=== PATIENT | female | born 1975 | race Caucasian/White ===

== ENCOUNTER 2018-11-14 17:49 | Emergency (ER) | payer MEDICAID ==
[2018-11-14 17:49] VITALS: BMI 35.3
[2018-11-14 18:01] VITALS: TEMP 98
[2018-11-14 19:39] LABS: BASO # 0.1 K/uL (0.0-0.2); BASO % 0.6 % (0.0-2.0); EOS # 0.1 K/uL (0.0-0.7); HEMOGLOBIN 12.6 g/dL (12.0-16.0); LYMPH # 1.8 K/uL (1.0-4.3); LYMPH % 19.5 % (20.0-40.0); MEAN CELL VOLUME 86.3 fl (81.0-99.0); MEAN CORPUSCULAR HEMOGLOBIN 29.5 pg (27.0-31.0); MEAN CORPUSCULAR HGB CONC 34.2 g/dL (33.0-37.0); MEAN PLATELET VOLUME 7.2 fl (7.2-11.7); MONO # 0.8 K/uL (0.0-0.8); MONO % 8.4 % (0.0-10.0); NEUT # 6.7 K/uL (1.8-7.0); NEUT % 70.5 % (50.0-75.0); RBC 4.27 Mil/uL (3.80-5.20); RED CELL DISTRIBUTION WIDTH 13.7 % (11.5-14.5); WHITE BLOOD COUNT 9.4 K/uL (4.8-10.8)
[2018-11-14 19:59] LABS: ALB/GLOB RATIO 1.3 (1.0-2.1); ALBUMIN 4.1 g/dL (3.5-5.0); ALT/SGPT 28 U/L (9-52); AST/SGOT 29 U/L (14-36); BLOOD UREA NITROGEN 11 mg/dl (7-17); CALCIUM 9.2 mg/dL (8.4-10.2); GFR NON-AFRICAN AMERICAN > 60
--- NOTE | 2018-11-14 20:10 | ED PDOC ---
HPI: Chest Pain Time Seen by Provider: 11/14/18 18:33 Chief Complaint (Nursing): Chest Pain Chief Complaint (Provider): Chest Pain History Per: Patient History/Exam Limitations: no limitations Onset/Duration Of Symptoms: Days (x4) Current Symptoms Are (Timing): Still Present Additional Complaint(s): 43 y/o female with a PMHx of Migraines presents to the ED for evaluation of right sided chest pain, onset four days ago. Patient reports of experiencing right sided chest pain on evening just prior to going to bed. Patient describes the pain as pressure like and radiates to the back. Patient states pain lasted for 20 minutes and spontaneously resolved. Patient notes of having woke up the next day and feeling paresthesias to the right arm. Patient states arm felt weak. Patient reports pain has progressively worsened over the last couple of days and of feeling the chest pain again earlier today. Patient notes of having called her PMD about symptoms and was told to go to the ER for further evaluation. Otherwise, patient denies shortness of breath, leg swelling, headache, nausea and vomiting. Patient additionally reports of experiencing neck pain intermittently for a long time that is unchanged. Patient denies any neck pain at present. Patient notes of taking control medications. PMD: In [place], [place] Past Medical History Reviewed: Historical Data, Nursing Documentation, Vital Signs Vital Signs: Last Vital Signs Temp 98.0 F 11/14/18 18:00 Pulse 75 11/14/18 18:00 Resp 19 11/14/18 18:00 BP 134/72 11/14/18 18:00 Pulse Ox 100 11/14/18 18:00 - Medical History PMH: Migraine Denies: Chronic Kidney Disease - Surgical History Surgical History: Cholecystectomy Other surgeries: KNEE SURGERY AND OVARIAN CYSTS SURGERY - Family History Family History: States: Diabetes, Hypertension - Home Medications Home Medications: Ambulatory Orders Medication Instructions Recorded Norgestimate-Ethinyl Estradiol 1 tab PO DAILY 01/16/13 [Ortho Tri-Cyclen Lo 0.025 mg-0.25 mg] Cholecalciferol [Vitamin D] 2,000 iu PO DAILY 06/07/14 Cyanocobalamin [Vitamin B12] 1,000 mcg IM QWK 08/16/14 Ibuprofen [Motrin] 600 mg PO DAILY PRN 08/16/14 Ciprofloxacin HCl [Ciprofloxacin] 500 mg PO Q12 #20 tab 07/06/16 Dicyclomine [Bentyl] 20 mg PO Q6 PRN #12 tab 02/05/16 Famotidine [Pepcid] 40 mg PO DAILY #20 tab 02/05/16 Metronidazole [Flagyl] 500 mg PO TID #30 tablet 02/05/16 Ondansetron [Zofran] 4 mg PO Q8H #8 tab 02/05/16 traMADol [Ultram] 50 mg PO Q8 PRN #12 tab 02/05/16 Naproxen [Naprosyn] 1 tab PO BID PRN #30 tab 11/14/18 - Allergies Allergies/Adverse Reactions: Allergies Allergy/AdvReac Type Severity Reaction Status Date / Time No Known Allergies Allergy Verified 01/16/13 15:17 Review of Systems ROS Statement: Except As Marked, All Systems Reviewed And Found Negative (as per HPI) Cardiovascular: Positive for: Chest Pain Respiratory: Negative for: Shortness of Breath Gastrointestinal: Negative for: Nausea, Vomiting Musculoskeletal: Positive for: Neck Pain. Negative for: Leg Pain Neurological: Positive for: Weakness, Other (paresthesia to the right arm). Negative for: Headache Physical Exam - Reviewed Nursing Documentation Reviewed: Yes Vital Signs Reviewed: Yes - Physical Exam Appears: Positive for: Well, Non-toxic, No Acute Distress Head Exam: Positive for: ATRAUMATIC, NORMOCEPHALIC Skin: Positive for: Warm, Dry Eye Exam: Positive for: EOMI, PERRL ENT: Negative for: Pharyngeal Erythema, Tonsillar Exudate Neck: Positive for: Painless ROM, Supple Cardiovascular/Chest: Positive for: Regular Rate, Rhythm. Negative for: Murmur Respiratory: Positive for: Normal Breath Sounds (lungs are clear to auscultation bilaterally). Negative for: Rales, Respiratory Distress Gastrointestinal/Abdominal: Positive for: Soft. Negative for: Tenderness Back: Positive for: Normal Inspection. Negative for: Decreased ROM Extremity: Negative for: Calf Tenderness, Other (edema) Lymphatic: Negative for: Adenopathy Neurological/Psych: Positive for: Awake, Alert. Negative for: Motor/Sensory Deficits - Laboratory Results Result Diagrams: 11/14/18 19:34 11/14/18 19:34 Lab Results: Total Bilirubin 0.5 mg/dl (0.2-1.3) 11/14/18 19:34 AST 29 U/L (14-36) 11/14/18 19:34 ALT 28 U/L (9-52) 11/14/18 19:34 Alkaline Phosphatase 73 U/L (38-126) 11/14/18 19:34 Total Protein 7.4 G/DL (6.3-8.2) 11/14/18 19:34 Albumin 4.1 g/dL (3.5-5.0) 11/14/18 19:34 Globulin 3.2 gm/dL (2.2-3.9) 11/14/18 19:34 Albumin/Globulin Ratio 1.3 (1.0-2.1) 11/14/18 19:34 ELevated ddimer. No emergently significant abnormalities - ECG ECG: Positive for: Interpreted By Me ECG Rhythm: Positive for: Normal QRS, Normal ST Segment, Sinus Rhythm (With sinus arrhythmia) Rate: 68 O2 Sat by Pulse Oximetry: 100 (RA) Pulse Ox Interpretation: Normal Medical Decision Making Medical Decision Making: Time: 1900 Impression: Right sided chest pain and right upper extremity paresthesias Differentials include but not limited to pulmonary embolism, radiculopathy and intercranial mass Plan: -- CT Cervical Spine w/o Contrast -- CT Head w/o Contrast -- EKG -- CMP -- Magnesium -- Phosphorus -- Thyroid Stimulating Hormone -- Troponin I -- ED Urine -- ED Urine Dipstick -- CBC with differentials -- D Dimer -- CXR Two Views Time: 2007 -- CTA PE Protocol EXAM: CT Head Without IV contrast. CLINICAL HISTORY: Right arm weakness TECHNIQUE: Axial computed tomography images of the head/brain without intravenous contrast. COMPARISON: None provided. FINDINGS: BRAIN: No acute intraparenchymal hemorrhage. No mass lesion. No CT evidence for acute territorial infarct. No midline shift or extra-axial collections. VENTRICLES: No hydrocephalus. ORBITS: The orbits are unremarkable. SINUSES AND MASTOIDS: The paranasal sinuses and mastoid air cells are clear. BONES: No fracture. SOFT TISSUES: Unremarkable. IMPRESSION: No acute intracranial abnormality. Electronically signed on Nov 14, 2018 10:30:01 PM EDT by: Patrick Martinez M.D., HERIBERTO Certified By ABR & [employer] Fellowship Trained MRI and CT Specialist EXAM: CT Cervical Spine Without IV contrast. CLINICAL HISTORY: Right arm weakness and neck pain TECHNIQUE: Axial computed tomography images of the cervical spine without intravenous contrast. Sagittal and coronal reformatted images were generated. COMPARISON: None provided. FINDINGS: ALIGNMENT: There is straightening and slight reversal of the cervical lordosis. No evidence for acute fracture or subluxation. DEGENERATIVE CHANGES: No significant degenerative changes in the cervical spine. SOFT TISSUES: No focal prevertebral soft tissue swelling. BONES: No acute fracture or aggressive appearing osseous lesion. IMPRESSION: 1. There is straightening and slight reversal of the cervical lordosis. 2. No focal prevertebral soft tissue swelling. 3. No evidence for acute fracture or subluxation. 4. No significant degenerative changes in the cervical spine. Electronically signed on Nov 14, 2018 10:27:59 PM EDT by: Patrick Martinez M.D., MBA Certified By ABR & [employer] Fellowship Trained MRI and CT Specialist EXAM: CTA Chest with Intravenous Contrast for Pulmonary Embolism CLINICAL HISTORY: Chest pain with elevated d dimer TECHNIQUE: Axial CTA images of the chest with intravenous contrast using a pulmonary embolism protocol. Reconstructed images were created and reviewed. 286.21 mGy-cm CONTRAST: With; 75ml Visipaque 320 was administered without incident. COMPARISON: None provided. FINDINGS: BREASTS: Incidental note is made of a 1.7 x 1.9 cm partially calcified fibroadenoma in the medial left breast. PULMONARY ARTERIES No evidence of central or segmental pulmonary embolism is seen. AORTA There is no evidence for aneurysm or dissection of the thoracic aorta. LUNGS The lungs appear clear. PLEURAL SPACES No evidence of pneumothorax. No pleural effusion. HEART Normal heart size. No pericardial effusion. LYMPH NODES No lymphadenopathy is evident. BONES No focal osseous abnormality or acute fracture. UPPER ABDOMEN Images of the upper abdomen demonstrated hepatomegaly. The liver measured 17.2 cm in the midclavicular line. There has been prior cholecystectomy. IMPRESSION: 1. No identification of PE. 2. Hepatomegaly. 3. Status post cholecystectomy. Electronically signed on Nov 14, 2018 10:28:09 PM EDT by: Patrick Martinez M.D., HERIBERTO Certified By ABR & CBC[employer] Fellowship Trained MRI and CT Specialist Time: 2242 -- Discussed with patient findings. Instructions to follow up with PMD for furth er evaluation. Scribe Attestation: Documented by Florecita Joyce, acting as a scribe for Alvina Ruelas MD. Provider Scribe Attestation: All medical record entries made by the Scribe were at my direction and personally dictated by me. I have reviewed the chart and agree that the record accurately reflects my personal performance of the history, physical exam, medical decision making, and the department course for this patient. I have also personally directed, reviewed, and agree with the discharge instructions and disposition Disposition - Clinical Impression Clinical Impression: Arm paresthesia, right Counseled Patient/Family Regarding: Studies Performed, Diagnosis, Need For Followup, Rx Given - Disposition Disposition: Routine/Home Disposition Time: 23:07 Condition: STABLE Additional Instructions: FOLLOWUP SCHEDULED WITH YOUR DOCTOR FOR FURTHER EVALUATION Prescriptions: Naproxen [Naprosyn] 1 tab PO BID PRN #30 tab PRN Reason: Pain Instructions: Paresthesias (DC) Forms: [facility] ED School/Work Excuse
[2018-11-14] MEDS ORDERED: Sodium Chloride 0.9% 50 ML IV ONE (21:09)
[2018-11-14] MEDS ORDERED: Iodixanol 320 MG/ML 100 ML BOTTLE IV ONE (21:09)
[2018-11-14 22:29] VITALS: RESP 18
[2018-11-14 23:18] VITALS: BP 117/50; PULSE 74; O2SAT 98
--- NOTE | 2018-11-15 09:32 | RAD ---
Date of service: 11/14/2018 HISTORY: chest pain COMPARISON: No prior. TECHNIQUE: Chest PA and lateral views FINDINGS: LUNGS: No active pulmonary disease. PLEURA: No significant pleural effusion identified. No pneumothorax apparent. CARDIOVASCULAR: No aortic atherosclerotic calcification present. Normal cardiac size. No pulmonary vascular congestion. OSSEOUS STRUCTURES: No significant abnormalities. VISUALIZED UPPER ABDOMEN: Normal. OTHER FINDINGS: None. IMPRESSION: No acute cardiopulmonary disease appreciated.
--- NOTE | 2018-11-15 11:09 | CT ---
Date of service: 11/14/2018 PROCEDURE: CT Chest with contrast (Pulmonary Angiogram) HISTORY: Right arm numbness, chest pain and elevated D-dimer. COMPARISON: None available. TECHNIQUE: Axial computed tomography images were obtained of the chest in the pulmonary arterial phase of enhancement. Coronal and sagittal reformatted images were created and reviewed. Intravenous contrast dose: 75 cc Omnipaque 300. Mean Hounsfield value in the main pulmonary artery: 311.37 Radiation dose: Total exam DLP = 286.21 mGy-cm. This CT exam was performed using one or more of the following dose reduction techniques: Automated exposure control, adjustment of the mA and/or kV according to patient size, and/or use of iterative reconstruction technique. FINDINGS: PULMONARY ARTERIES: Unremarkable. No pulmonary embolism. AORTA: No acute findings. No thoracic aortic aneurysm. No atherosclerotic calcification or mural plaque present. LUNGS: Unremarkable. No nodule, mass or pulmonary consolidation. PLEURAL SPACES: Unremarkable. No effusion or pneumothorax. HEART: Unremarkable. No cardiomegaly. No significant pericardial effusion. LYMPH NODES: No lymphadenopathy. BONES, CHEST WALL: Unremarkable. No fracture or destructive lesion OTHER FINDINGS: Left breast mass with micro clip likely the sequela of prior breast biopsy. Results unknown. IMPRESSION: Unremarkable CT pulmonary angiogram. No pulmonary embolus. Additional benign and/or incidental findings described above. Concordant results (preliminary interpretation) provided by [facility]. Procedure Completed: 21:34. Preliminary Report: Interpreted and electronically signed: 22:28. Final Interpretation: 11:05. November 15, 2018.
--- NOTE | 2018-11-15 11:12 | CT ---
Date of service: 11/14/2018 PROCEDURE: CT Cervical Spine without contrast HISTORY: RIGHT arm weakness and neck pain COMPARISON: None available. TECHNIQUE: Axial computed tomography images were obtained of the cervical spine without the use of intravenous contrast. Coronal and sagittal reformatted images were created and reviewed. Radiation dose: Total exam DLP = 336.35 mGy-cm. This CT exam was performed using one or more of the following dose reduction techniques: Automated exposure control, adjustment of the mA and/or kV according to patient size, and/or use of iterative reconstruction technique. FINDINGS: VERTEBRAE: No fracture. Normal alignment. No destructive bony lesion. DISCS/SPINAL CANAL/NEURAL FORAMINA: No significant central canal or neural foraminal stenosis. Discs heights are grossly preserved. PARASPINAL SOFT TISSUES: Unremarkable. OTHER FINDINGS: None. IMPRESSION: Unremarkable CT of the cervical spine. Concordant results (preliminary interpretation) provided by [facility]. Procedure Completed: 21:15. Preliminary Report: Interpreted and electronically signed: 22:27. Final Interpretation: 11:08. November 15, 2018.
--- NOTE | 2018-11-15 11:15 | CT ---
Date of service: 11/14/2018 PROCEDURE: CT HEAD WITHOUT CONTRAST. HISTORY: RIGHT arm weakness COMPARISON: 08/13/2012. TECHNIQUE: Axial computed tomography images were obtained through the head/brain without intravenous contrast. Supplemental Coronal and Sagittal projections created and reviewed. Radiation dose: Total exam DLP = 745.27 mGy-cm. This CT exam was performed using one or more of the following dose reduction techniques: Automated exposure control, adjustment of the mA and/or kV according to patient size, and/or use of iterative reconstruction technique. FINDINGS: HEMORRHAGE: No intracranial hemorrhage. BRAIN: No mass effect or edema. No atrophy or chronic microvascular ischemic changes. VENTRICLES: Unremarkable. No hydrocephalus. CALVARIUM: Unremarkable. PARANASAL SINUSES: Unremarkable as visualized. No significant inflammatory changes. MASTOID AIR CELLS: Unremarkable as visualized. No inflammatory changes. OTHER FINDINGS: None. IMPRESSION: No acute intracranial abnormalities. No significant findings to account for the clinical presentation. No significant interval change compared to the prior examination(s). Concordant results (preliminary interpretation) provided by [facility]. Procedure Completed: 21:13. Preliminary Report: Interpreted and electronically signed: 22:30. Final Interpretation: 11:12. November 15, 2018.
--- NOTE | 2018-11-15 21:12 | CARD ---
APPROVED REPORT Date of service: 11/14/2018 EKG Measurement Heart [id number] <Conclusion> Normal sinus rhythm with sinus arrhythmia Possible Left atrial enlargement Borderline ECG
== END 2018-11-14 23:17 | disposition home or self-care (01) ==
LOC: H.ER 17:49
DX: R20.0 Anesthesia of skin (principal); Z90.49 Acquired absence of other specified parts of digestive tract
CPT/HCPCS: 70450; 71046; 71275; 72125; 80053; 81025; 83735; 84100; 84443; 84484; 85025; 85378; 93005; 99285; Q9967